=== PATIENT | male | born 1980 | race Two or more races ===

== ENCOUNTER 2018-10-07 21:57 | Emergency (ER) | payer MEDICAID ==
[~2018-10-07] VITALS: Ht 172.7 cm; Wt 66.7 kg
[~2018-10-07 21:57] MED LIST: METF500T PO
[2018-10-07] MEDS ORDERED: ACETAMINOPHEN 325 MG TAB PO ONE (22:30)
[2018-10-07] MEDS ORDERED: SODIUM CHLORIDE 0.9% 1,000 ML IV ONE (22:45)
[2018-10-07] MEDS ORDERED: InsuLIN REG 1unit/0.01ml Soln (100units/ml) IV ONE (22:45)
[2018-10-07 22:59] LABS: Eosinophils # (auto) 0.6 uL; Hemoglobin 15.2 g/dL (13.5-17.5); Mean Corpuscular Hemoglobin 23.1 pg (28.0-32.0); Monocytes # (auto) 0.9 uL
[2018-10-07 23:00] LABS: Basophils # (auto) 0.2 uL; Eosinophils % (auto) 4.5 % (0.0-7.0); Hematocrit 47.8 % (41.0-53.0); Lymphocytes # (auto) 2.4 uL; Lymphocytes % (auto) 16.8 % (10.0-50.0); Mean Corpuscular Hgb Conc. 31.9 g/dL (32.0-36.0); Mean Corpuscular Volume 72.5 fL (80.0-100.0); Neutrophils # (auto) 10.4 uL; Neutrophils % (auto) 71.7 % (37.0-80.0); Platelet Count (auto) 447 10^3/uL (140-450); Red Cell Distribution Width 16.2 % (11.8-14.3); White Blood Cell 14.4 10^3/uL (4.4-10.8)
[2018-10-07 23:12] LABS: Potassium 4.6 mmol/L (3.5-5.1)
[2018-10-07 23:40] LABS: Bilirubin, Total 0.2 mg/dL (0.2-1.0); Calcium 9.5 mg/dL (8.5-10.1)
[2018-10-08 01:23] VITALS: BP 120/57
== END 2018-10-08 02:25 | disposition home or self-care (01) ==
LOC: ER 21:57
DX: S80.01XA Contusion of right knee, initial encounter (principal); E11.9 Type 2 diabetes mellitus without complications; I10 Essential (primary) hypertension; W11.XXXA Fall on and from ladder, initial encounter; Y93.89 Activity, other specified; Y92.89 Other specified places as the place of occurrence of the external cause; Y99.8 Other external cause status
CPT/HCPCS: 36415; 73562; 73700; 80053; 82010; 82962; 83036; 85025; 96374; 99284; J1815; J7030; J7040